=== PATIENT | female | born 1940 | race Caucasian/White ===

== ENCOUNTER 2018-06-26 17:15 | Inpatient (IN) | payer MEDICARE ==
[2018-06-26] MEDS ORDERED: ADENOSINE 3 MG/ML 2 ML VIAL IVP STA ×2 (17:38→17:48)
[2018-06-26] MEDS ORDERED: SODIUM CHLORIDE 0.9% 1,000 ML IV ONE (17:40)
--- NOTE | 2018-06-26 17:40 | ED ---
General Adult HPI - General Chief complaint: Chest Pain Stated complaint: High Heart Rate, Low blood pressure Time Seen by Provider: 06/26/18 17:37 Source: patient, family Mode of arrival: EMS Limitations: no limitations - History of Present Illness Initial comments: 7 her old female who presents the emergency department today for evaluation of palpitations and lightheadedness. Patient reports that she has a history of a rapid heart rate in the past that his required medications in the emergency department, she is not certain what the specific diagnosis is. Patient reports that this evening she was making dinner when she suddenly felt that her heart was racing and she became very lightheaded. She told her about this and he called her lens silverer who advised her to come to the ER for further evaluation. Patient reports some mild pressure in her chest but is more concerned about the rapid heart rate and lightheadedness. She has no history of known coronary artery disease, HI or episodes of chest pain in the past. - Related Data Home Medications Medication Instructions Recorded Confirmed Aspirin [Adult Low Dose Aspirin EC] 81 mg PO DAILY 06/26/18 06/26/18 Atorvastatin Calcium [Lipitor] 20 mg PO DAILY 06/26/18 06/26/18 Cholecalciferol [Vitamin D3] 1,000 unit PO BID 06/26/18 06/26/18 Citalopram Hydrobromide [CeleXA] 10 mg PO DAILY 06/26/18 06/26/18 Diazepam [Valium] 5 mg PO Q12H PRN 06/26/18 06/26/18 Gabapentin [Neurontin] 600 mg PO TID 06/26/18 06/26/18 Hydrocodone/Acetaminophen [[place] 1 tab PO Q8H PRN 06/26/18 06/26/18 10-325] Lisinopril [Zestril] 10 mg PO DAILY 06/26/18 06/26/18 Niacin 500 mg PO W/BRKFST 06/26/18 06/26/18 Omeprazole [PriLOSEC] 20 mg PO AC-BRKFST 06/26/18 06/26/18 Polyethylene Glycol 3350 [Miralax] 17 gm PO HS PRN 06/26/18 06/26/18 Sennosides/Docusate Sodium 1 tab PO BID@0900,1700 06/26/18 06/26/18 [Senna-S Laxative Tablet] Ubidecarenone [Co Q-10] 100 mg PO DAILY 06/26/18 06/26/18 Vitamin B Complex 1 cap PO DAILY 06/26/18 06/26/18 methylPREDNISolone Dose Pack 4 mg PO DIRECTED 06/26/18 06/26/18 [Medrol Dose Pack] Allergies Allergy/AdvReac Type Severity Reaction Status Date / Time tramadol Allergy Unknown Verified 06/26/18 18:10 Review of Systems ROS Statement: Those systems with pertinent positive or pertinent negative responses have been documented in the HPI. ROS Other: All systems not noted in ROS Statement are negative. Past Medical History Past Medical History: GERD/Reflux, Hyperlipidemia, Hypertension History of Any Multi-Drug Resistant Organisms: None Reported Additional Past Surgical History / Comment(s): rectal sx, back surgery, left knee surgery Past Psychological History: Anxiety Smoking Status: Never smoker Past Alcohol Use History: None Reported Past Drug Use History: None Reported General Exam Limitations: no limitations General appearance: alert, anxious Head exam: Present: atraumatic, normocephalic Eye exam: Present: PERRL ENT exam: Present: normal exam Neck exam: Absent: tenderness Respiratory exam: Absent: respiratory distress Cardiovascular Exam: Present: regular rate, tachycardia GI/Abdominal exam: Present: soft. Absent: distended Rectal exam: Present: deferred Extremities exam: Absent: pedal edema Neurological exam: Present: alert, oriented X3 Psychiatric exam: Present: anxious Skin exam: Present: warm, dry Course Vital Signs 06/26/18 06/26/18 17:20 17:52 Temperature 98.5 F Pulse Rate 161 H 109 H Pulse Rate [ 160 H Supervisor Special Effects ] Respiratory 18 20 Rate Blood Pressure 72/59 134/74 O2 Sat by Pulse 96 96 Oximetry Medical Decision Making - Medical Decision Making The patient was seen and evaluated immediately upon arrival to the emergency department Patient noted to be tachycardic with a heart rate in the 160s, hypotensive, alert and oriented Twelve-lead EKG obtained at 1734 was reviewed, the tachycardia with a rate of 157, does appear to have a mildly wide QRS at 120 however the rate is consistent with SVT as is the patient's history IV access was established, labs were obtained him of the patient was placed on her later pads and adenosine was administered. First dose of adenosine cause some transient slowing of the heart which we could see P waves however heart rate immediately resumed at 160. Os of adenosine was given, patient had significant cardiac cause and subsequent development of a normal sinus rhythm. EKG obtained at 1748 reveals a sinus tachycardia with a rate of 104, normal axis , normal intervals no acute ST elevations or depressions. She remained in sinus rhythm throughout her emergency department stay Labs reveal an acute kidney injury, troponin is negative however BNP is mildly written elevated which is likely related to her tachydysrhythmia Care was discussed with Dr. Heard, who accepts admission with consult to cardiology. - Lab Data Result diagrams: 06/26/18 17:56 06/26/18 17:56 Lab Results 06/26/18 06/26/18 06/26/18 Range/Units 17:56 17:56 17:56 WBC 9.2 (3.8-10.6) k/uL RBC 4.32 (3.80-5.40) m/uL Hgb 12.1 (11.4-16.0) gm/dL Hct 39.7 (34.0-46.0) % MCV 92.0 (80.0-100.0) fL MCH 28.1 (25.0-35.0) pg MCHC 30.6 L (31.0-37.0) g/dL RDW 13.6 (11.5-15.5) % Plt Count 324 (150-450) k/uL Neutrophils % 68 % Lymphocytes % 24 % Monocytes % 4 % Eosinophils % 2 % Basophils % 1 % Neutrophils # 6.3 (1.3-7.7) k/uL Lymphocytes # 2.2 (1.0-4.8) k/uL Monocytes # 0.4 (0-1.0) k/uL Eosinophils # 0.2 (0-0.7) k/uL Basophils # 0.1 (0-0.2) k/uL PT (9.0-12.0) sec INR (<1.2) APTT (22.0-30.0) sec Sodium 140 (137-145) mmol/L Potassium 4.0 (3.5-5.1) mmol/L Chloride 108 H (98-107) mmol/L Carbon Dioxide 22 (22-30) mmol/L Anion Gap 10 mmol/L BUN 21 H (7-17) mg/dL Creatinine 1.10 H (0.52-1.04) mg/dL Est GFR (CKD-EPI)AfAm 56 (>60 ml/min/1.73 sqM) Est GFR (CKD-EPI)NonAf 49 (>60 ml/min/1.73 sqM) Glucose 113 H (74-99) mg/dL Calcium 9.5 (8.4-10.2) mg/dL Magnesium 2.1 (1.6-2.3) mg/dL Total Bilirubin 0.5 (0.2-1.3) mg/dL AST 32 (14-36) U/L ALT 36 (9-52) U/L Alkaline Phosphatase 71 (38-126) U/L Total Creatine Kinase 78 (30-135) U/L CK-MB (CK-2) 1.1 (0.0-2.4) ng/mL CK-MB (CK-2) Rel Index 1.4 Troponin I <0.012 (0.000-0.034) ng/mL NT-Pro-B Natriuret Pep pg/mL Total Protein 6.9 (6.3-8.2) g/dL Albumin 4.0 (3.5-5.0) g/dL 06/26/18 06/26/18 Range/Units 17:56 17:56 WBC (3.8-10.6) k/uL RBC (3.80-5.40) m/uL Hgb (11.4-16.0) gm/dL Hct (34.0-46.0) % MCV (80.0-100.0) fL MCH (25.0-35.0) pg MCHC (31.0-37.0) g/dL RDW (11.5-15.5) % Plt Count (150-450) k/uL Neutrophils % % Lymphocytes % % Monocytes % % Eosinophils % % Basophils % % Neutrophils # (1.3-7.7) k/uL Lymphocytes # (1.0-4.8) k/uL Monocytes # (0-1.0) k/uL Eosinophils # (0-0.7) k/uL Basophils # (0-0.2) k/uL PT 10.8 (9.0-12.0) sec INR 1.1 (<1.2) APTT 23.6 (22.0-30.0) sec Sodium (137-145) mmol/L Potassium (3.5-5.1) mmol/L Chloride (98-107) mmol/L Carbon Dioxide (22-30) mmol/L Anion Gap mmol/L BUN (7-17) mg/dL Creatinine (0.52-1.04) mg/dL Est GFR (CKD-EPI)AfAm (>60 ml/min/1.73 sqM) Est GFR (CKD-EPI)NonAf (>60 ml/min/1.73 sqM) Glucose (74-99) mg/dL Calcium (8.4-10.2) mg/dL Magnesium (1.6-2.3) mg/dL Total Bilirubin (0.2-1.3) mg/dL AST (14-36) U/L ALT (9-52) U/L Alkaline Phosphatase (38-126) U/L Total Creatine Kinase (30-135) U/L CK-MB (CK-2) (0.0-2.4) ng/mL CK-MB (CK-2) Rel Index Troponin I (0.000-0.034) ng/mL NT-Pro-B Natriuret Pep 796 pg/mL Total Protein (6.3-8.2) g/dL Albumin (3.5-5.0) g/dL Disposition Clinical Impression: SVT (supraventricular tachycardia), CHF (congestive heart failure) Disposition: ADMITTED IP TO THIS HOSP Condition: Good Referrals: Gustabo Strickland MD [Primary Care Provider] - 1-2 days
[2018-06-26 18:04] LABS: Basophils # (A) 0.1 k/uL (0-0.2); Basophils % (A) 1 %; Eosinophils # (A) 0.2 k/uL (0-0.7); Eosinophils % (A) 2 %; HCT 39.7 % (34.0-46.0); HGB 12.1 gm/dL (11.4-16.0); Lymphocytes # (A) 2.2 k/uL (1.0-4.8); Lymphocytes % (A) 24 %; MCH 28.1 pg (25.0-35.0); MCHC 30.6 g/dL (31.0-37.0); Mean Platelet Volume 6.8; Monocytes # (A) 0.4 k/uL (0-1.0); Monocytes % (A) 4 %; Neutrophils # (A) 6.3 k/uL (1.3-7.7); Neutrophils % (A) 68 %; Platelet Count 324 k/uL (150-450); RBC 4.32 m/uL (3.80-5.40); RDW 13.6 % (11.5-15.5); WBC 9.2 k/uL (3.8-10.6)
[2018-06-26 18:14] LABS: INR 1.1 (<1.2); Partial Thromboplastin Time 23.6 sec (22.0-30.0); Prothrombin Time 10.8 sec (9.0-12.0)
[2018-06-26 18:20] LABS: Creatine Kinase 78 U/L (30-135)
[2018-06-26 18:22] LABS: Calcium 9.5 mg/dL (8.4-10.2); Magnesium 2.1 mg/dL (1.6-2.3); Total Bilirubin 0.5 mg/dL (0.2-1.3); Total Protein 6.9 g/dL (6.3-8.2)
--- NOTE | 2018-06-26 18:22 | XR ---
EXAMINATION TYPE: XR chest 2V DATE OF EXAM: 06/26/2018 COMPARISON: 05/18/2015 HISTORY: Chest pain TECHNIQUE: Frontal and lateral views of the chest are obtained. FINDINGS: There is no heart failure nor confluent pneumonic infiltrate. Costophrenic angles are jose armando r. Thoracic aorta is atheromatous. There are chest leads. IMPRESSION: No active cardiopulmonary disease. No change.
[2018-06-26 18:33] LABS: Creatine Kinase MB 1.1 ng/mL (0.0-2.4); Troponin I <0.012 ng/mL (0.000-0.034)
[2018-06-26] MEDS ORDERED: NALOXONE 0.4 MG/ML 1 ML VIAL IV PRN (18:43)
[2018-06-26 19:27] LABS: Appearance,Urine Clear (Clear); Bacteria,Urine Moderate /hpf; Bilirubin,Urine Negative (Negative); Blood,Urine Negative (Negative); Budding Yeast,Urine Occasional /hpf; Color,Urine Light Yellow; Glucose,Urine (UA) Negative (Negative); Hyaline Casts,Urine 19 /lpf (0-2); Ketones,Urine Negative (Negative); Leukocyte Esterase,Urine Moderate (Negative); Mucus,Urine Rare /hpf; Nitrite,Urine Negative (Negative); PH, Urine 7.5 (5.0-8.0); Protein,Urine Negative (Negative); RBC,Urine 1 /hpf (0-5); Specific Gravity,Urine 1.008 (1.001-1.035); Squamous Epithelial Cell,Urine <1 /hpf (0-4); Urobilinogen,Urine <2.0 mg/dL (<2.0); WBC,Urine 29 /hpf (0-5)
[2018-06-26] MEDS ORDERED: cefTRIAXone IN SWFI 1,000 MG/10 ML SYRINGE IVP STA (22:11)
[2018-06-26] MEDS ORDERED: POLYETHYLENE GLYCOL 3350 17 GM POWD.PACK PO PRN (22:43)
--- NOTE | 2018-06-27 10:37 | P.CRDCN ---
History of Present Illness Consult date: 06/27/18 Requesting physician: James Heard Reason for Consult (text): SVT Chief complaint: Dizziness and lightheadedness History of present illness: This is a pleasant 77-year-old female who follows with Dr. Iniguez in the office. She has a known history of hypertension, hyperlipidemia. Patient presents to the hospital on this occasion with symptoms of palpitations and lightheadedness. According to the patient, she intermittently notices palpitations and lightheadedness. She also states that approximately 3 years ago she was undergoing surgery, and prior to that had the similar symptoms, she was told at that time to have a very rapid heart beat, requiring medication to convert her. Since then she has not had any prolonged episodes of this. On presentation here her EKG shows supraventricular tachycardia with a heart rate of 150-160 range. She was given adenosine and after a long pause converted to normal sinus rhythm. She again went into supraventricular tachycardia and received a second dose of adenosine again converting to normal sinus rhythm. This morning she remains in a normal sinus rhythm. She feels well, no dizziness no lightheadedness. Chest x-ray did not reveal any active cardiopulmonary disease. Her blood pressure on arrival was 72/50, heart rate at that time in the 160s, after conversion to normal sinus rhythm, blood pressure 134/70 with a heart rate in the 70s. Blood cell count 9.2, hemoglobin 12.1, platelet count 324. Sodium 140, potassium 4.0, BUN 21, creatinine 1.1. Magnesium 2.1. Troponin 0.012. TSH 2.3. Atenolol examination, patient feels well. Past Medical History Past Medical History: GERD/Reflux, Hyperlipidemia, Hypertension Additional Past Medical History / Comment(s): anxiety, hx spinal stenosis(back sx), sinus and seasonal allergies, constipation, hemmorhoids, arthritis, osteoporosis, past prolapsed bowel has 12" removed. History of Any Multi-Drug Resistant Organisms: None Reported Past Surgical History: Adenoidectomy, Back Surgery, Bowel Resection, Heart Catheterization, Tonsillectomy Additional Past Surgical History / Comment(s): past prolapsed bowel-12" removed , back surgery, left knee surgery, egd/colonoscopy Past Anesthesia/Blood Transfusion Reactions: Previous Problems w/ Anesthesia Additional Past Anesthesia/Blood Transfusion Reaction / Comment(s): difficult intubation Smoking Status: Never smoker - Past Family History Father Family Medical History: Cancer, Prostate Disorder Daughter(s) Family Medical History: Cancer Additional Family Medical History / Comment(s): thyroid cancer Medications and Allergies Home Medications Medication Instructions Recorded Confirmed Type Aspirin [Adult Low Dose Aspirin EC] 81 mg PO DAILY 06/26/18 06/26/18 History Atorvastatin Calcium [Lipitor] 20 mg PO DAILY 06/26/18 06/26/18 History Cholecalciferol [Vitamin D3] 1,000 unit PO BID 06/26/18 06/26/18 History Citalopram Hydrobromide [CeleXA] 10 mg PO DAILY 06/26/18 06/26/18 History Diazepam [Valium] 5 mg PO Q12H PRN 06/26/18 06/26/18 History Gabapentin [Neurontin] 600 mg PO TID 06/26/18 06/26/18 History Hydrocodone/Acetaminophen [[place] 1 tab PO Q8H PRN 06/26/18 06/26/18 History 10-325] Lisinopril [Zestril] 10 mg PO DAILY 06/26/18 06/26/18 History Niacin 500 mg PO W/BRKFST 06/26/18 06/26/18 History Omeprazole [PriLOSEC] 20 mg PO AC-BRKFST 06/26/18 06/26/18 History Polyethylene Glycol 3350 [Miralax] 17 gm PO HS PRN 06/26/18 06/26/18 History Sennosides/Docusate Sodium 1 tab PO BID@0900,1700 06/26/18 06/26/18 History [Senna-S Laxative Tablet] Ubidecarenone [Co Q-10] 100 mg PO DAILY 06/26/18 06/26/18 History Vitamin B Complex 1 cap PO DAILY 06/26/18 06/26/18 History methylPREDNISolone Dose Pack 4 mg PO DIRECTED 06/26/18 06/26/18 History [Medrol Dose Pack] Allergies Allergy/AdvReac Type Severity Reaction Status Date / Time tramadol Allergy Unknown Verified 06/26/18 18:10 Physical Exam Vitals: Vital Signs Temp Pulse Pulse Resp BP BP Pulse Ox 06/27/18 04:00 97.6 F 66 16 121/68 98 06/27/18 03:45 64 18 06/26/18 23:27 77 18 06/26/18 23:24 97.3 F L 77 18 117/67 98 06/26/18 22:10 98.7 F 68 16 126/62 98 06/26/18 21:30 98.7 F 71 16 130/78 99 06/26/18 20:30 97.9 F 66 73 19 145/78 142/75 97 06/26/18 20:00 70 16 137/76 99 06/26/18 19:51 76 16 142/93 99 06/26/18 17:52 109 H 20 134/74 96 06/26/18 17:20 98.5 F 161 H 160 H 18 72/59 96 Intake and Output 06/26/18 06/27/18 06/27/18 22:59 06:59 14:59 Intake Total 300 300 240 Balance 300 300 240 Intake: Oral 300 300 240 Other: Voiding Method Toilet Weight 54.431 kg 55.4 kg PHYSICAL EXAMINATION: GENERAL: 77-year-old female in no acute distress at the time of my examination HEENT: Head is atraumatic, normocephalic. Pupils equal, round. Sclera anicteric. Conjunctiva are clear. Mucous membranes of the mouth are moist. Neck is supple. There is no elevated jugular venous pressure.] bruit is heard. HEART EXAMINATION: Heart S1 and S2 with systolic ejection murmur is heard. CHEST EXAMINATION: Lungs are clear to auscultation and precussion. No chest wall tenderness is noted on palpation or with deep breathing. ABDOMEN: Soft, nontender. Bowel sounds are heard. No organomegaly noted. EXTREMITIES: 2+ peripheral pulses with no evidence of peripheral edema and no calf tenderness noted. NEUROLOGIC patient is awake, alert and oriented ?-3. . Results 06/26/18 17:56 06/26/18 17:56 Cardiac Enzymes 06/26/18 06/26/18 Range/Units 17:56 17:56 AST 32 (14-36) U/L CK-MB (CK-2) 1.1 (0.0-2.4) ng/mL Troponin I <0.012 (0.000-0.034) ng/mL Coagulation 06/26/18 Range/Units 17:56 PT 10.8 (9.0-12.0) sec APTT 23.6 (22.0-30.0) sec CBC 06/26/18 Range/Units 17:56 WBC 9.2 (3.8-10.6) k/uL RBC 4.32 (3.80-5.40) m/uL Hgb 12.1 (11.4-16.0) gm/dL Hct 39.7 (34.0-46.0) % Plt Count 324 (150-450) k/uL Comprehensive Metabolic Panel 06/26/18 Range/Units 17:56 Sodium 140 (137-145) mmol/L Potassium 4.0 (3.5-5.1) mmol/L Chloride 108 H (98-107) mmol/L Carbon Dioxide 22 (22-30) mmol/L BUN 21 H (7-17) mg/dL Creatinine 1.10 H (0.52-1.04) mg/dL Glucose 113 H (74-99) mg/dL Calcium 9.5 (8.4-10.2) mg/dL AST 32 (14-36) U/L ALT 36 (9-52) U/L Alkaline Phosphatase 71 (38-126) U/L Total Protein 6.9 (6.3-8.2) g/dL Albumin 4.0 (3.5-5.0) g/dL Current Medications Generic Name Dose Route Start Last Admin Trade Name Freq PRN Reason Stop Dose Admin Naloxone HCl 0.2 mg 06/26/18 18:43 Narcan IV Q2M PRN Opioid Reversal Polyethylene Glycol 17 gm 06/26/18 22:43 06/26/18 23:09 Miralax PO 17 gm HS PRN Administration Constipation Intake and Output 06/26/18 06/27/18 06/27/18 22:59 06:59 14:59 Intake Total 300 300 240 Balance 300 300 240 Intake: Oral 300 300 240 Other: Voiding Method Toilet Weight 54.431 kg 55.4 kg 06/26/18 17:56 06/26/18 17:56 EKG Interpretations (text) Initial EKG showed a supraventricular tachycardia with a heart rate in the 160s , subsequent EKG shows normal sinus rhythm with no acute changes. Assessment and Plan Plan: Assessment and plan #1 supraventricular tachycardia, status post administration of adenosine, currently in normal sinus rhythm. TSH level normal. #2 hypertension 3 hyperlipidemia #4 spinal stenosis, patient is scheduled on to undergo a pain injection with steroids. Plan Will obtain an echocardiogram with Doppler study. We will resume the patient's Lipitor, lisinopril, add small dose beta sofiya to her medication regime. It was also explained to the patient, that she may benefit from an SVT ablation if she has recurrences. Further recommendations to follow. DNP note has been reviewed, I agree with a documented findings and plan of care. Patient was seen and examined.
[2018-06-27] MEDS ORDERED: DIAZEPAM 5 MG TAB PO PRN (12:22)
--- NOTE | 2018-06-27 15:03 | P.HPIM ---
History of Present Illness H&P Date: 06/27/18 Chief Complaint: Heart racing of fast and dizziness Patient is a 77-year-old female with a known history of hypertension, hyperlipidemia, depression/anxiety, GERD and previous history of rapid heart rate about 3 years ago came to ER with complaints of heart racing up fast and dizziness/lightheadedness. Patient was at home yesterday and suddenly felt heart racing up fast and not feeling very well. Patient called Dr. Iniguez's office and was told to come to Hospital for further evaluation. Patient was found to have EKG evidence of supraventricular tachycardia on admission and was given a dose of Adenosine in the ER. Patient was converted back to sinus rhythm now. Currently patient feels well and symptomatically much improved. Patient denied any chest pain or shortness of breath. No cough is from production. No fever no chills. No abdominal pain nausea vomiting or diarrhea. Denied any recent illnesses. Patient had previous episode of rapid heartbeat when she was undergoing surgery about 3 years ago. Since then patient did not have any further episodes this long. Chest x-ray showed no acute cardio pulmonary process Blood pressure 72/50 on admission and heart rate 160 Troponin 0.01 to TSH 2.3 Review of Systems Constitutional: Patient denies any fever or chills . No generalized weakness or weight loss. Abdomen: Patient denied nausea vomiting and diarrhea and abdominal pain. Cardiovascular: Patient denies any chest pain or short of breath. Patient does have dizziness and palpitations. Respiratory: patient denied any cough is from production. No shortness of breath Neurologic: Patient denied any numbness or tingling headache. Musculoskeletal: Patient denies any complaints of joint swelling or deformity. Skin: Negative Psychiatric: Negative Endocrine: No heat or cold intolerance. No recent weight gain. Genitourinary: No dysuria or hematuria. All other 14 point ROS negative except the above Past Medical History Past Medical History: GERD/Reflux, Hyperlipidemia, Hypertension Additional Past Medical History / Comment(s): anxiety, hx spinal stenosis(back sx), sinus and seasonal allergies, constipation, hemmorhoids, arthritis, osteoporosis, past prolapsed bowel has 12" removed. History of Any Multi-Drug Resistant Organisms: None Reported Past Surgical History: Adenoidectomy, Back Surgery, Bowel Resection, Heart Catheterization, Tonsillectomy Additional Past Surgical History / Comment(s): past prolapsed bowel-12" removed , back surgery, left knee surgery, egd/colonoscopy Past Anesthesia/Blood Transfusion Reactions: Previous Problems w/ Anesthesia Additional Past Anesthesia/Blood Transfusion Reaction / Comment(s): difficult intubation Smoking Status: Never smoker - Past Family History Father Family Medical History: Cancer, Prostate Disorder Daughter(s) Family Medical History: Cancer Additional Family Medical History / Comment(s): thyroid cancer Medications and Allergies Home Medications Medication Instructions Recorded Confirmed Type Aspirin [Adult Low Dose Aspirin EC] 81 mg PO DAILY 06/26/18 06/26/18 History Atorvastatin Calcium [Lipitor] 20 mg PO DAILY 06/26/18 06/26/18 History Cholecalciferol [Vitamin D3] 1,000 unit PO BID 06/26/18 06/26/18 History Citalopram Hydrobromide [CeleXA] 10 mg PO DAILY 06/26/18 06/26/18 History Diazepam [Valium] 5 mg PO Q12H PRN 06/26/18 06/26/18 History Gabapentin [Neurontin] 600 mg PO TID 06/26/18 06/26/18 History Hydrocodone/Acetaminophen [[place] 1 tab PO Q8H PRN 06/26/18 06/26/18 History 10-325] Lisinopril [Zestril] 10 mg PO DAILY 06/26/18 06/26/18 History Niacin 500 mg PO W/BRKFST 06/26/18 06/26/18 History Omeprazole [PriLOSEC] 20 mg PO AC-BRKFST 06/26/18 06/26/18 History Polyethylene Glycol 3350 [Miralax] 17 gm PO HS PRN 06/26/18 06/26/18 History Sennosides/Docusate Sodium 1 tab PO BID@0900,1700 06/26/18 06/26/18 History [Senna-S Laxative Tablet] Ubidecarenone [Co Q-10] 100 mg PO DAILY 06/26/18 06/26/18 History Vitamin B Complex 1 cap PO DAILY 06/26/18 06/26/18 History methylPREDNISolone Dose Pack 4 mg PO DIRECTED 06/26/18 06/26/18 History [Medrol Dose Pack] Allergies Allergy/AdvReac Type Severity Reaction Status Date / Time tramadol Allergy Unknown Verified 06/26/18 18:10 Physical Exam Vitals: Vital Signs Temp Pulse Pulse Resp BP BP Pulse Ox 06/27/18 12:00 75 18 06/27/18 11:14 75 143/72 06/27/18 08:00 98 F 74 18 128/74 95 06/27/18 04:00 97.6 F 66 16 121/68 98 06/27/18 03:45 64 18 06/26/18 23:27 77 18 06/26/18 23:24 97.3 F L 77 18 117/67 98 06/26/18 22:10 98.7 F 68 16 126/62 98 06/26/18 21:30 98.7 F 71 16 130/78 99 06/26/18 20:30 97.9 F 66 73 19 145/78 142/75 97 06/26/18 20:00 70 16 137/76 99 06/26/18 19:51 76 16 142/93 99 06/26/18 17:52 109 H 20 134/74 96 06/26/18 17:20 98.5 F 161 H 160 H 18 72/59 96 Intake and Output 06/26/18 06/27/18 06/27/18 22:59 06:59 14:59 Intake Total 300 300 480 Balance 300 300 480 Intake: Oral 300 300 480 Other: Voiding Method Toilet Toilet Weight 54.431 kg 55.4 kg PHYSICAL EXAMINATION: Patient is lying in the bed comfortably, no acute distress, awake alert and oriented.. HEENT: Normocephalic. Neck is supple. Pupils reactive. Nostrils clear. Oral cavity is moist. Ears reveal no drainage. Neck reveals no JVD, carotid bruits, or thyromegaly. CHEST EXAMINATION: Trachea is central. Symmetrical expansion. Lung anthony clear to auscultation and percussion. CARDIAC: Normal S1, S2 with no gallops. No murmurs ABDOMEN: Soft. Bowel sounds normal. No organomegaly. No abdominal bruits. Extremities: reveal no edema. No clubbing or cyanosis Neurologically awake, alert, oriented x3 with well-coordinated movements. No focal deficits noted Skin: No rash or skin lesions. Psychiatric: Coperative. Nonsuicidal Musculoskeletal: No joint swelling or deformity. Normal range of motion. Results CBC & Chem 7: 06/26/18 17:56 06/26/18 17:56 Labs: Abnormal Lab Results - Last 24 Hours (Table) 06/26/1818 18 Range/Units 17:56 17:56 18:56 MCHC 30.6 L (31.0-37.0) g/dL Chloride 108 H (98-107) mmol/L BUN 21 H (7-17) mg/dL Creatinine 1.10 H (0.52-1.04) mg/dL Glucose 113 H (74-99) mg/dL Ur Leukocyte Esterase Moderate H (Negative) Urine WBC 29 H (0-5) /hpf Urine Bacteria Moderate H (None) /hpf Hyaline Casts 19 H (0-2) /lpf Urine Mucus Rare H (None) /hpf Urine Yeast (Budding) Occasional H (None) /hpf Thrombosis Risk Factor Assmnt - DVT/VTE Prophylaxis DVT/VTE Prophylaxis: Pharmacologic Prophylaxis ordered - Choose All That Apply Any of the Below Risk Factors Present?: No Other Risk Factors: Yes Each Risk Factor Represents 3 Points: Age 75 years or older Other congenital or acquired thrombophilia - If yes, enter type in comment: No Thrombosis Risk Factor Assessment Total Risk Factor Score: 3 Thrombosis Risk Factor Assessment Level: Moderate Risk Assessment and Plan Assessment: Palpitations due to supraventricular tachycardia. Status post Adenosine in the ER. Currently in sinus rhythm. Previous history of rapid heart rate 3 years ago GERD Hypertension Hyperlipidemia Anxiety History of spinal stenosis and is scheduled for back injections Sinus and seasonal ALLERGIES Osteoarthritis DVT prophylaxis Plan: Patient will be continued on telemetry monitoring. 2-D echocardiogram was ordered. Continue with metoprolol and lisinopril and home medications. Cardiology is on board. Patient may need EP study and possible cardiac ablation if she frequently having symptoms. TSH within normal limits. Continue the telemetry monitoring and further recommendations based on the clinical course. Time with Patient: Greater than 30
[2018-06-27] MEDS ORDERED: LISINOPRIL 10 MG TAB PO STA (15:53)
[2018-06-27] MEDS: GABAPENTIN 300 MG CAP PO SCH ×2 (16:12→20:06)
[2018-06-27] MEDS: SENNOSIDES-DOCUSATE SODIUM 1 EACH TAB PO SCH (16:12)
--- NOTE | 2018-06-27 18:03 | P.CRDCN ---
History of Present Illness Chief complaint: presyncope , palpitations History of present illness: This is Dr. 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 Very long pause following IV adenosine, sinus arrest Hypertension Dyslipidemia. PLAN: Detailed discussion with the patient regarding the management of AV deven reentrant tachycardia. The mechanism the tachycardia discussed. Options discussed. I would recommend EP study and curative radio frequency ablation. Reasons for this and the pros and cons were discussed in detail. Success rates and failure rates complications discussed In the interim I would recommend a Valsalva maneuver to terminated the tachycardia. However this could be problematic because when she received IV adenosine, the arrhythmia would terminate and then reinitiate once again I explained the process of ablation that she would be in the hospital overnight and the usual postop management HPI Patient presented to the hospital with dizziness and presyncope associated with palpitations of sudden onset. No true loss of consciousness or contour she had a sitdown quickly. She is very dizzy She received IV adenosine which terminated the tachycardia that it reinitiated once again. She had a very long sinus arrest following IV adenosine and termination occurred with block in the slow pathway Twelve-lead ECG was reviewed and shows SVT consistent with AV deven reentry with a Wellens sign ROS: No fever chills or rigors, no cough, phlegm or expectoration, no nausea, vomiting or diarrhea, no hematuria, dysuria, no musculoskeletal complaints, no strokes or seizures, no skin lesions. EXAMINATION Blood pressure 132/76 mmHg, temperature 96.7, pulse rate in 70s, normal respirations Normal heart sounds no murmurs or gallops or rub Breath sounds are clear no rhonchi no crackles Abdomen is soft nontender Extremities warm no edema REVIEW OF LABS, ECG Normal white count, hemoglobin 12.1, sodium and potassium normal. BUN 21 creatinine 1.1 magnesium 2.1 Normal TSH Normal troponin Past Medical History Past Medical History: GERD/Reflux, Hyperlipidemia, Hypertension Additional Past Medical History / Comment(s): anxiety, hx spinal stenosis(back sx), sinus and seasonal allergies, constipation, hemmorhoids, arthritis, osteoporosis, past prolapsed bowel has 12" removed. History of Any Multi-Drug Resistant Organisms: None Reported Past Surgical History: Adenoidectomy, Back Surgery, Bowel Resection, Heart Catheterization, Tonsillectomy Additional Past Surgical History / Comment(s): past prolapsed bowel-12" removed , back surgery, left knee surgery, egd/colonoscopy Past Anesthesia/Blood Transfusion Reactions: Previous Problems w/ Anesthesia Additional Past Anesthesia/Blood Transfusion Reaction / Comment(s): difficult intubation Smoking Status: Never smoker - Past Family History Father Family Medical History: Cancer, Prostate Disorder Daughter(s) Family Medical History: Cancer Additional Family Medical History / Comment(s): thyroid cancer Medications and Allergies Home Medications Medication Instructions Recorded Confirmed Type Aspirin [Adult Low Dose Aspirin EC] 81 mg PO DAILY 06/26/18 06/26/18 History Atorvastatin Calcium [Lipitor] 20 mg PO DAILY 06/26/18 06/26/18 History Cholecalciferol [Vitamin D3] 1,000 unit PO BID 06/26/18 06/26/18 History Citalopram Hydrobromide [CeleXA] 10 mg PO DAILY 06/26/18 06/26/18 History Diazepam [Valium] 5 mg PO Q12H PRN 06/26/18 06/26/18 History Gabapentin [Neurontin] 600 mg PO TID 06/26/18 06/26/18 History Hydrocodone/Acetaminophen [[place] 1 tab PO Q8H PRN 06/26/18 06/26/18 History 10-325] Lisinopril [Zestril] 10 mg PO DAILY 06/26/18 06/26/18 History Niacin 500 mg PO W/BRKFST 06/26/18 06/26/18 History Omeprazole [PriLOSEC] 20 mg PO AC-BRKFST 06/26/18 06/26/18 History Polyethylene Glycol 3350 [Miralax] 17 gm PO HS PRN 06/26/18 06/26/18 History Sennosides/Docusate Sodium 1 tab PO BID@0900,1700 06/26/18 06/26/18 History [Senna-S Laxative Tablet] Ubidecarenone [Co Q-10] 100 mg PO DAILY 06/26/18 06/26/18 History Vitamin B Complex 1 cap PO DAILY 06/26/18 06/26/18 History methylPREDNISolone Dose Pack 4 mg PO DIRECTED 06/26/18 06/26/18 History [Medrol Dose Pack] Allergies Allergy/AdvReac Type Severity Reaction Status Date / Time tramadol Allergy Unknown Verified 06/26/18 18:10 Physical Exam Vitals: Vital Signs Temp Pulse Pulse Resp BP BP Pulse Ox 06/27/18 16:16 96.7 F L 76 18 132/76 06/27/18 16:00 76 18 06/27/18 12:00 75 18 06/27/18 11:14 75 143/72 06/27/18 08:00 98 F 74 18 128/74 95 06/27/18 04:00 97.6 F 66 16 121/68 98 06/27/18 03:45 64 18 06/26/18 23:27 77 18 06/26/18 23:24 97.3 F L 77 18 117/67 98 06/26/18 22:10 98.7 F 68 16 126/62 98 06/26/18 21:30 98.7 F 71 16 130/78 99 06/26/18 20:30 97.9 F 66 73 19 145/78 142/75 97 06/26/18 20:00 70 16 137/76 99 06/26/18 19:51 76 16 142/93 99 Intake and Output 06/27/18 06/27/18 06/27/18 06:59 14:59 22:59 Intake Total 300 480 Output Total 1000 Balance 300 -520 Intake: Oral 300 480 Output: Urine 1000 Other: Voiding Method Toilet Toilet Toilet Weight 55.4 kg Results 06/26/18 17:56 06/26/18 17:56 Cardiac Enzymes 06/26/18 06/26/18 Range/Units 17:56 17:56 AST 32 (14-36) U/L CK-MB (CK-2) 1.1 (0.0-2.4) ng/mL Troponin I <0.012 (0.000-0.034) ng/mL Coagulation 06/26/18 Range/Units 17:56 PT 10.8 (9.0-12.0) sec APTT 23.6 (22.0-30.0) sec CBC 06/26/18 Range/Units 17:56 WBC 9.2 (3.8-10.6) k/uL RBC 4.32 (3.80-5.40) m/uL Hgb 12.1 (11.4-16.0) gm/dL Hct 39.7 (34.0-46.0) % Plt Count 324 (150-450) k/uL Comprehensive Metabolic Panel 06/26/18 Range/Units 17:56 Sodium 140 (137-145) mmol/L Potassium 4.0 (3.5-5.1) mmol/L Chloride 108 H (98-107) mmol/L Carbon Dioxide 22 (22-30) mmol/L BUN 21 H (7-17) mg/dL Creatinine 1.10 H (0.52-1.04) mg/dL Glucose 113 H (74-99) mg/dL Calcium 9.5 (8.4-10.2) mg/dL AST 32 (14-36) U/L ALT 36 (9-52) U/L Alkaline Phosphatase 71 (38-126) U/L Total Protein 6.9 (6.3-8.2) g/dL Albumin 4.0 (3.5-5.0) g/dL Current Medications Generic Name Dose Route Start Last Admin Trade Name Freq PRN Reason Stop Dose Admin Aspirin 81 mg 06/28/18 09:00 Aspirin PO DAILY [facility] Atorvastatin Calcium 20 mg 06/28/18 09:00 Lipitor PO DAILY [facility] Cholecalciferol 1,000 unit 06/27/18 21:00 Vitamin D3 PO BID [facility] Citalopram Hydrobromide 10 mg 06/28/18 09:00 Celexa PO DAILY [facility] Diazepam 5 mg 06/27/18 12:22 Valium PO Q12H PRN Anxiety Gabapentin 600 mg 06/27/18 16:00 06/27/18 16:12 Neurontin PO 600 mg TID [facility] Administration Lisinopril 10 mg 06/28/18 09:00 Zestril PO DAILY [facility] Metoprolol Tartrate 25 mg 06/27/18 21:00 Lopressor PO BID [facility] Naloxone HCl 0.2 mg 06/26/18 18:43 Narcan IV Q2M PRN Opioid Reversal Niacin 500 mg 06/28/18 07:30 Niacin Tr PO W/BRKFST [facility] Co--1 10 100mg 100 mg 06/28/18 09:00 PO DAILY [facility] Vitamin B Complex 1 cap 06/28/18 09:00 PO DAILY [facility] Pantoprazole Sodium 40 mg 06/28/18 07:30 Protonix PO AC-BRKFST JOSUE Polyethylene Glycol 17 gm 06/26/18 22:43 06/26/18 23:09 Miralax PO 17 gm HS PRN Administration Constipation Senna/Docusate Sodium 1 each 06/27/18 17:00 06/27/18 16:12 Senokot-S PO 1 each BID@0900,1700 JOSUE Administration Intake and Output 06/27/18 06/27/18 06/27/18 06:59 14:59 22:59 Intake Total 300 480 Output Total 1000 Balance 300 -520 Intake: Oral 300 480 Output: Urine 1000 Other: Voiding Method Toilet Toilet Toilet Weight 55.4 kg 06/26/18 17:56 06/26/18 17:56
[2018-06-27] MEDS: cefTRIAXone IN SWFI 1,000 MG/10 ML SYRINGE IVP SCH (20:06)
[2018-06-27] MEDS: CHOLECALCIFEROL 1,000 UNIT TAB PO SCH (20:07)
[2018-06-27] MEDS: METOPROLOL TARTRATE 25 MG TAB PO SCH (20:07)
[2018-06-27 23:18] VITALS: RESP 16
[2018-06-28] MEDS ORDERED: NIACIN TR 500 MG CAPSULE.ER PO SCH (07:30)
[2018-06-28] MEDS ORDERED: PANTOPRAZOLE 40 MG TABLET PO SCH (07:30)
[2018-06-28] MEDS ORDERED: ASPIRIN 81 MG PO SCH (09:00)
[2018-06-28] MEDS ORDERED: LISINOPRIL 10 MG TAB PO SCH (09:00)
[2018-06-28] MEDS ORDERED: VITAMIN B COMPLEX PO SCH (09:00)
[2018-06-28] MEDS ORDERED: CITALOPRAM HYDROBROMIDE 10 MG TAB PO SCH (09:00)
[2018-06-28] MEDS ORDERED: ATORVASTATIN 20 MG TAB PO SCH (09:00)
[2018-06-28] MEDS ORDERED: [UNRECOGNIZED DRUG - OTHER] PO SCH (09:00)
[2018-06-28] MEDS: METOPROLOL TARTRATE 25 MG TAB PO SCH (09:30)
[2018-06-28] MEDS: GABAPENTIN 300 MG CAP PO SCH (09:30)
[2018-06-28] MEDS: SENNOSIDES-DOCUSATE SODIUM 1 EACH TAB PO SCH (09:31)
[2018-06-28] MEDS: CHOLECALCIFEROL 1,000 UNIT TAB PO SCH (09:31)
[2018-06-28 10:27] VITALS: PULSE 70; TEMP 97.2
[2018-06-28] MEDS: cefTRIAXone IN SWFI 1,000 MG/10 ML SYRINGE IVP SCH (10:37)
--- NOTE | 2018-06-28 14:28 | P.PN ---
Subjective Progress Note Date: 06/28/18 This is a pleasant 77-year-old female who follows with Dr. Iniguez in the office. She has a known history of hypertension, hyperlipidemia. Patient presents to the hospital on this occasion with symptoms of palpitations and lightheadedness. According to the patient, she intermittently notices palpitations and lightheadedness. She also states that approximately 3 years ago she was undergoing surgery, and prior to that had the similar symptoms, she was told at that time to have a very rapid heart beat, requiring medication to convert her. Since then she has not had any prolonged episodes of this. On presentation here her EKG shows supraventricular tachycardia with a heart rate of 150-160 range. She was given adenosine and after a long pause converted to normal sinus rhythm. She again went into supraventricular tachycardia and received a second dose of adenosine again converting to normal sinus rhythm. This morning she remains in a normal sinus rhythm. She feels well, no dizziness no lightheadedness. Chest x-ray did not reveal any active cardiopulmonary disease. Her blood pressure on arrival was 72/50, heart rate at that time in the 160s, after conversion to normal sinus rhythm, blood pressure 134/70 with a heart rate in the 70s. Blood cell count 9.2, hemoglobin 12.1, platelet count 324. Sodium 140, potassium 4.0, BUN 21, creatinine 1.1. Magnesium 2.1. Troponin 0.012. TSH 2.3. 06/28/2018 Patient was seen and examined this morning, no further episodes of SVT. She feels well, hemodynamically stable. Patient was also seen in consultation by Dr. Ortiz regarding possible SVT ablation. She wishes to think about the ablation. We will continue her on beta sofiya at this time, she may be able to be discharged home today and follow-up with Dr. Iniguez in the office. Objective - Vital Signs Vital signs: Vital Signs Temp 97.2 F L 06/28/18 08:00 Pulse 70 06/28/18 12:00 Resp 16 06/28/18 12:00 BP 130/64 06/28/18 08:00 Pulse Ox 95 06/28/18 08:00 Intake & Output 06/27/18 06/28/18 06/28/18 18:59 06:59 18:59 Intake Total 480 600 360 Output Total 1000 Balance -520 600 360 Weight 53.2 kg Intake: Oral 480 600 360 Output: Urine 1000 Other: Voiding Method Toilet Toilet Toilet # Voids 1 - Exam PHYSICAL EXAMINATION: GENERAL: 77-year-old female in no acute distress at the time of my examination HEENT: Head is atraumatic, normocephalic. Pupils equal, round. Sclera anicteric. Conjunctiva are clear. Mucous membranes of the mouth are moist. Neck is supple. There is no elevated jugular venous pressure.] bruit is heard. HEART EXAMINATION: Heart S1 and S2 with systolic ejection murmur is heard. CHEST EXAMINATION: Lungs are clear to auscultation and precussion. No chest wall tenderness is noted on palpation or with deep breathing. ABDOMEN: Soft, nontender. Bowel sounds are heard. No organomegaly noted. EXTREMITIES: 2+ peripheral pulses with no evidence of peripheral edema and no calf tenderness noted. NEUROLOGIC patient is awake, alert and oriented ?-3. - Labs CBC & Chem 7: 06/26/18 17:56 06/26/18 17:56 Assessment and Plan Plan: Assessment and plan #1 supraventricular tachycardia, status post administration of adenosine, currently in normal sinus rhythm. TSH level normal. #2 hypertension 3 hyperlipidemia #4 spinal stenosis, patient is scheduled on to undergo a pain injection with steroids. Plan Patient was seen in consultation by Dr. Ortiz for possible SVT ablation, she wishes to think about this further. At this time we will discharge her home on current dose of beta sofiya, a Follow-up appointment for her to see Dr. Iniguez in the office. DNP note has been reviewed, I agree with a documented findings and plan of care. Patient was seen and examined.
--- NOTE | 2018-06-28 15:13 | P.DS ---
Providers Date of admission: 06/26/18 18:43 Expected date of discharge: 06/28/18 Attending physician: James Heard Consults: 06/26/18 18:44 Consult Physician Routine Consulting Provider: [facility] Consult Reason/Comments: svt Do you want consulting provider notified?: Yes 06/27/18 11:57 Consult Physician Urgent Consulting Provider: Víctor Ortiz Consult Reason/Comments: svt Do you want consulting provider notified?: Already Contacted Primary care physician: Gustabo Strickland [facility] Course: Discharge diagnosis Palpitations due to supraventricular tachycardia. Status post Adenosine in the ER. Currently in sinus rhythm. Previous history of rapid heart rate 3 years ago Possible acute urinary tract infection GERD Hypertension Hyperlipidemia Anxiety History of spinal stenosis and is scheduled for back injections Sinus and seasonal ALLERGIES Osteoarthritis DVT prophylaxis Hospital course Patient is a 77-year-old female with a known history of hypertension, hyperlipidemia, depression/anxiety, GERD and previous history of rapid heart rate about 3 years ago came to ER with complaints of heart racing up fast and dizziness/lightheadedness. Patient was at home yesterday and suddenly felt heart racing up fast and not feeling very well. Patient called Dr. Iniguez's office and was told to come to Hospital for further evaluation. Patient was found to have EKG evidence of supraventricular tachycardia on admission and was given a dose of Adenosine in the ER. Patient was converted back to sinus rhythm now. Currently patient feels well and symptomatically much improved. Patient denied any chest pain or shortness of breath. No cough is from production. No fever no chills. No abdominal pain nausea vomiting or diarrhea. Denied any recent illnesses. Patient had previous episode of rapid heartbeat when she was undergoing surgery about 3 years ago. Since then patient did not have any further episodes this long. Chest x-ray showed no acute cardio pulmonary process Blood pressure 72/50 on admission and heart rate 160 Troponin 0.01 to TSH 2.3 Plan: Patient was continued on telemetry monitoring. 2-D echocardiogram was ordered. Continued with metoprolol and lisinopril and home medications. Patient was seen by EP and recommended to continue beta sofiya and cardiac ablation was recommended but patient said that she will think about it and recommended to follow-up as an outpatient. Patient may need EP study and possible cardiac ablation if she frequently having symptoms. TSH within normal limits. Continued the telemetry monitoring and currently maintaining sinus rhythm. Otherwise patient is stable to be discharged home and follow up with primary care physician and cardiology as an outpatient.. PHYSICAL EXAMINATION: Patient is lying in the bed comfortably, no acute distress, awake alert and oriented.. HEENT: Normocephalic. Neck is supple. Pupils reactive. Nostrils clear. Oral cavity is moist. Ears reveal no drainage. Neck reveals no JVD, carotid bruits, or thyromegaly. CHEST EXAMINATION: Trachea is central. Symmetrical expansion. Lung anthony clear to auscultation and percussion. CARDIAC: Normal S1, S2 with no gallops. No murmurs ABDOMEN: Soft. Bowel sounds normal. No organomegaly. No abdominal bruits. Extremities: reveal no edema. No clubbing or cyanosis Neurologically awake, alert, oriented x3 with well-coordinated movements. No focal deficits noted Skin: No rash or skin lesions. Psychiatric: Coperative. Nonsuicidal Musculoskeletal: No joint swelling or deformity. Normal range of motion. 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 ] Respiratory 16 16 16 Rate Blood Pressure 155/71 [Left Arm] O2 Sat by Pulse 97 Oximetry 06/28/18 06/28/18 06/28/18 04:00 08:00 12:00 Temperature 97.7 F 97.2 F L Pulse Rate [ 68 70 70 Hotel Maintenance Engineer ] Respiratory 16 16 16 Rate Blood Pressure 137/64 130/64 [Left Arm] O2 Sat by Pulse 98 95 Oximetry Patient Condition at Discharge: Good Plan - Discharge Summary Discharge Rx Participant: No New Discharge Prescriptions: New Metoprolol Tartrate [Lopressor] 25 mg PO BID #60 tab Cefuroxime Axetil [Ceftin] 500 mg PO BID 3 Days #6 tab Continue Aspirin [Adult Low Dose Aspirin EC] 81 mg PO DAILY Atorvastatin Calcium [Lipitor] 20 mg PO DAILY Cholecalciferol [Vitamin D3] 1,000 unit PO BID Citalopram Hydrobromide [CeleXA] 10 mg PO DAILY Diazepam [Valium] 5 mg PO Q12H PRN PRN Reason: Anxiety Gabapentin [Neurontin] 600 mg PO TID Hydrocodone/Acetaminophen [[place] 10-325] 1 tab PO Q8H PRN PRN Reason: Pain Lisinopril [Zestril] 10 mg PO DAILY Niacin 500 mg PO W/BRKFST Omeprazole [PriLOSEC] 20 mg PO AC-BRKFST Sennosides/Docusate Sodium [Senna-S Laxative Tablet] 1 tab PO BID@0900,1700 Ubidecarenone [Co Q-10] 100 mg PO DAILY Vitamin B Complex 1 cap PO DAILY Polyethylene Glycol 3350 [Miralax] 17 gm PO HS PRN PRN Reason: Constipation Discontinued methylPREDNISolone Dose Pack [Medrol Dose Pack] 4 mg PO DIRECTED Discharge Medication List Aspirin [Adult Low Dose Aspirin EC] 81 mg PO DAILY 06/26/18 [History] Atorvastatin Calcium [Lipitor] 20 mg PO DAILY 06/26/18 [History] Cholecalciferol [Vitamin D3] 1,000 unit PO BID 06/26/18 [History] Citalopram Hydrobromide [CeleXA] 10 mg PO DAILY 06/26/18 [History] Diazepam [Valium] 5 mg PO Q12H PRN 06/26/18 [History] Gabapentin [Neurontin] 600 mg PO TID 06/26/18 [History] Hydrocodone/Acetaminophen [[place] 10-325] 1 tab PO Q8H PRN 06/26/18 [History] Lisinopril [Zestril] 10 mg PO DAILY 06/26/18 [History] Niacin 500 mg PO W/BRKFST 06/26/18 [History] Omeprazole [PriLOSEC] 20 mg PO AC-BRKFST 06/26/18 [History] Polyethylene Glycol 3350 [Miralax] 17 gm PO HS PRN 06/26/18 [History] Sennosides/Docusate Sodium [Senna-S Laxative Tablet] 1 tab PO BID@0900,1700 [History] Ubidecarenone [Co Q-10] 100 mg PO DAILY 06/26/18 [History] Vitamin B Complex 1 cap PO DAILY 06/26/18 [History] Cefuroxime Axetil [Ceftin] 500 mg PO BID 3 Days #6 tab 06/28/18 [Rx] Metoprolol Tartrate [Lopressor] 25 mg PO BID #60 tab 06/28/18 [Rx] Follow up Appointment(s)/Referral(s): Gustabo Strickland MD [Primary Care Provider] - 1-2 days (Pt to make their own appointment per boot turner. Please call to schedule) Discharge Disposition: HOME SELF-CARE
[2018-06-28 15:22] VITALS: BP 129/72
== END 2018-06-28 16:33 | disposition home or self-care (01) | DRG 309 ==
LOC: EC 17:15 → 6SEL 18:43
PROVIDERS: ADMIT Internal Medicine; ATTEND Internal Medicine
DX: I47.1 Supraventricular tachycardia (principal); N39.0 Urinary tract infection, site not specified; F41.9 Anxiety disorder, unspecified; E78.5 Hyperlipidemia, unspecified; I11.0 Hypertensive heart disease with heart failure; I50.9 Heart failure, unspecified; K21.9 Gastro-esophageal reflux disease without esophagitis; M19.90 Unspecified osteoarthritis, unspecified site; M48.00 Spinal stenosis, site unspecified; M81.0 Age-related osteoporosis without current pathological fracture; Z79.82 Long term (current) use of aspirin; Z80.8 Family history of malignant neoplasm of other organs or systems; Z90.49 Acquired absence of other specified parts of digestive tract; J30.2 Other seasonal allergic rhinitis; Z79.899 Other long term (current) drug therapy
CPT/HCPCS: 36415; 71046; 80053; 81001; 82550; 82553; 83735; 83880; 84443; 84484; 85025; 85610; 85730; 93306; 96361; 96374; 99285